=== PATIENT | male | born 1995 ===

== ENCOUNTER 2018-06-19 18:27 | Emergency (ER) | payer BC, MEDICAID ==
[2018-06-19 18:38] VITALS: TEMP 97.7
[2018-06-19 19:02] VITALS: RESP 16
--- NOTE | 2018-06-19 19:09 | C.PDOC ---
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 Describes feeling a tightness from the neck area going all the way down to the anterior chest. Episode lasted only a few seconds and resolved spontaneously. At present time patient reports he is asymptomatic. Of note patient is a smoker, and admits he smokes both cigarettes and marijuana. Time Seen by Provider: 06/19/18 18:37 Chief Complaint (Nursing): Shortness Of Breath History Per: Patient History/Exam Limitations: no limitations Onset/Duration Of Symptoms: Mins Current Symptoms Are (Timing): Gone Past Medical History Reviewed: Historical Data, Nursing Documentation, Vital Signs Vital Signs: Last Vital Signs Temp 97.7 F 06/19/18 18:35 Pulse 72 06/19/18 20:04 Resp 16 06/19/18 20:04 BP 102/63 06/19/18 20:04 Pulse Ox 100 06/19/18 20:35 Surgical History: No Surg Hx Family History: States: No Known Family Hx - Social History Hx Alcohol Use: Yes Hx Substance Use: Yes - Immunization History Hx Tetanus Toxoid Vaccination: No Hx Influenza Vaccination: No Hx Pneumococcal Vaccination: No Review Of Systems Except As Marked, All Systems Reviewed And Found Negative. Constitutional: Negative for: Fever Eyes: Negative for: Vision Change ENT: Negative for: Nose Congestion Cardiovascular: Positive for: Chest Pain Respiratory: Positive for: Shortness of Breath. Negative for: Cough Gastrointestinal: Negative for: Nausea, Vomiting, Abdominal Pain Musculoskeletal: Positive for: Neck Pain Neurological: Negative for: Weakness, Numbness, Incoordination, Change in Speech , Headache, Dizziness Physical Exam - Physical Exam Appears: Well, Non-toxic, No Acute Distress Skin: Normal Color, Warm, No Rash, No Ecchymosis Head: Atraumatic, Normacephalic Eye(s): bilateral: PERRL Nose: No Flaring, No Discharge Oral Mucosa: Moist Throat: No Erythema Neck: Normal ROM, Trachea Midline, No Midline Cervical Tenderness, No Paracervical Tenderness, Supple Chest: Symmetrical, No Deformity, No Tenderness Cardiovascular: Rhythm Regular, No Murmur, No JVD Respiratory: No Decreased Breath Sounds, No Accessory Muscle Use, No Rales, No Rhonchi, No Wheezing Gastrointestinal/Abdominal: Soft, No Tenderness, No Distention Extremity: Normal ROM, No Swelling Extremity: Bilateral: Atraumatic, Normal Color And Temperature, Normal ROM Pulses: Left Dorsalis Pedis: Normal, Right Dorsalis Pedis: Normal Neurological/Psych: Oriented x3, Normal Speech Gait: Steady ED Course And Treatment ECG: Interpreted By Me, Viewed By Me (and ED attending) ECG Rhythm: Sinus Rhythm ECG Interpretation: Normal Interpretation Of ECG: SInus bibi@64/min, RAD, no acute T wave or ST-T changes. O2 Sat by Pulse Oximetry: 100 (RA) Pulse Ox Interpretation: Normal - Radiology CXR: Interpreted by Me, Viewed By Me CXR Interpretation: Yes: No Acute Disease. No: Pnemothorax Progress Note: EKG and CXR ordered. On re-evaluation, pt is afebrile, hemodynamicaly stable. Non-toxic. Pt reamined asymptomatic. PulsEOx 100% RA. ENT: no acute findings. neck: Supple, (-) JVD, (-) carotid bruits B/L. Lungs: CTA B/L, BS equal B/L. CVS: (+)S1S2, reg., (-) murmur. Abd: benign, (-) guarding, (-) rebound. CXR, EKG- normal study. Pt has clinical findings c/w episode of dyspnea, resolved. Pt advised on course of ds. ref. to f/u with Ped in 1 -2 days for re-eval. Return to Ed if any worsening or new changes. Disposition Counseled Patient/Family Regarding: Studies Performed, Diagnosis, Need For Followup - Disposition Referrals: [facility] [Outside] Disposition: HOME/ ROUTINE Disposition Time: 19:30 Condition: STABLE Additional Instructions: Follow up with PMD in 2-3 days for re-evaluation. Return to ED at any time if any worsening or new changes. 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 - Scribe Statement The provider has reviewed the documentation as recorded by the Scribe (Rosa Morgan) All medical record entries made by the Scribe were at my direction and personally dictated by me. I have reviewed the chart and agree that the record accurately reflects my personal performance of the history, physical exam, medical decision making, and the department course for this patient. I have also personally directed, reviewed, and agree with the discharge instructions and disposition.
[2018-06-19 20:05] VITALS: BP 102/63; PULSE 72
[2018-06-19 20:21] VITALS: O2SAT 100
--- NOTE | 2018-06-20 09:40 | RAD ---
Date of service: 06/19/2018 HISTORY: Cough COMPARISON: No prior. TECHNIQUE: Chest PA and lateral FINDINGS: LUNGS: No active pulmonary disease. PLEURA: No significant pleural effusion identified. No pneumothorax apparent. CARDIOVASCULAR: Normal. OSSEOUS STRUCTURES: No significant abnormalities. VISUALIZED UPPER ABDOMEN: Normal. OTHER FINDINGS: None. IMPRESSION: No active disease. Concordant results with the preliminary interpretation rendered by the emergency department physician procedure.
--- NOTE | 2018-06-20 18:30 | CARD ---
APPROVED REPORT Date of service: 06/19/2018 EKG Measurement Heart [id number] [id number] <Conclusion> Normal sinus rhythm with sinus arrhythmia Rightward axis Borderline ECG
== END 2018-06-19 20:04 | disposition home or self-care (01) ==
LOC: C.ER 18:27
DX: R06.00 Dyspnea, unspecified (principal)